=== PATIENT | male | born 1965 | race Caucasian/White ===

== ENCOUNTER → 2016-07-18 | Outpatient (CLI) | payer OTHER ==
[~2016-07-18] MED LIST: ALBU8.5H2 IH; FLUT1AER IH; IBUP-1780 PO; OXYC-471 PO; PANT40TA3 PO; SUCR1TAB36 PO; TRAM50TA2 PO
--- NOTE | 2016-07-18 13:25 | Diagnostic Imaging Report ---
PROCEDURE: CT abdomen and pelvis without contrast. TECHNIQUE: Multiple contiguous axial images were obtained through the abdomen and pelvis without the use of intravenous contrast. INDICATION: Pain. FINDINGS: There is no hydronephrosis and there are no opaque kidney stones. The appendix normal. There is no bowel, biliary or urinary tract obstruction. The unopacified liver and bile ducts normal. The gallbladder contracted. There may be a tiny stone within its fundal aspect. The adrenals and spleen negative. The pancreas negative. The aorta is nonaneurysmal. 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 No abscess, hematoma or other fluid collection. There is no focal inflammatory process. No abdominal wall defect. Lung bases and the osseous structures nonacute. IMPRESSION: No acute-appearing abnormality. Dictated by: Dictated on workstation # [id number]
== END ==
LOC: RAD 12:52
PROVIDERS: ATTEND Nurse Practitioner Family
DX: R10.13 Epigastric pain (principal); R10.84 Generalized abdominal pain
CPT/HCPCS: 74176

== ENCOUNTER → 2016-08-07 | Outpatient (CLI) | payer OTHER ==
--- NOTE | 2016-08-07 13:22 | Diagnostic Imaging Report ---
PROCEDURE: US Gallbladder. TECHNIQUE: Multiple real-time grayscale images were obtained over the right upper quadrant in various projections. INDICATION: Abdominal pain. FINDINGS: The pancreas is largely obscured by bowel gas. The liver demonstrates no focal lesion. Hepatopetal flow in the portal vein is seen. The CBD is obscured by bowel gas. The gallbladder demonstrates no stones or wall thickening. The right kidney is 9.8 cm in length with no hydronephrosis or definite focal lesion visualized. The lower pole is obscured by bowel gas. No fluid collection in the upper right abdomen is seen. IMPRESSION: No definite abnormality. Dictated by: Dictated on workstation # [id number]
== END ==
LOC: RAD 08:56
PROVIDERS: ATTEND Surgery
DX: R10.84 Generalized abdominal pain (principal)
CPT/HCPCS: 76705

== ENCOUNTER 2016-08-20 05:36 | Outpatient (CLI) | payer SELFPAY ==
[~2016-08-20] VITALS: Ht 175.3 cm; Wt 99.8 kg
[~2016-08-20 05:36] MED LIST changes: -FLUT1AER IH; -PANT40TA3 PO; -SUCR1TAB36 PO; -TRAM50TA2 PO
[2016-08-20] MEDS ORDERED: TRAM50TA2 PO (10:37)
[2016-08-20] MEDS ORDERED: PANT40TA3 PO (10:37)
[2016-08-20] MEDS ORDERED: FLUT1AER IH (10:37)
[2016-08-21] MEDS ORDERED: PANT40TA3 PO (10:24)
[2016-08-21] MEDS ORDERED: SUCR1TAB36 PO (10:24)
== END 2016-08-20 10:43 ==
LOC: PREOP 05:36
PROVIDERS: ATTEND Surgery
DX: Z01.818 Encounter for other preprocedural examination (principal); Z12.11 Encounter for screening for malignant neoplasm of colon; R10.13 Epigastric pain

== ENCOUNTER 2016-08-21 08:26 | Day surgery (SDC) | payer OTHER ==
[~2016-08-21] VITALS: Ht 175.3 cm; Wt 99.8 kg
[~2016-08-21 08:26] MED LIST changes: +FLUT1AER IH; +PANT40TA3 PO; +TRAM50TA2 PO
[2016-08-21 08:40] VITALS: BP 132/74
[2016-08-21] MEDS ORDERED: NS IV 1000 ML 1,000 ML ONE (08:42)
[2016-08-21] MEDS ORDERED: NS IV 1000 ML 1,000 ML IV PRN (08:45)
--- NOTE | 2016-08-21 08:56 | Progress Note-Pre Operative ---
Pre-Operative Progress Note H&P Reviewed The H&P was reviewed, patient examined and no changes noted. Date H&P Reviewed: August 21, 2016 Time H&P Reviewed: 08:56 Pre-Operative Diagnosis: epigastric abdominal pain, screening colonoscopy SEBASTIÁN JUAN DO August 21, 2016 08:56
[2016-08-21] MEDS ORDERED: PROPOFOL INJECTION 50 ML IV ONE ×2 (09:33→10:07)
[2016-08-21] MEDS ORDERED: MIDAZOLAM 5 MG/5 ML (VERSED) VIAL ONE (09:33)
[2016-08-21] MEDS ORDERED: HURRICAINE EXT TUBE (BENZOCAINE) ONE (09:37)
[2016-08-21] MEDS ORDERED: SUCCINYLCHOLINE INJ 100 MG/5 ML SYR ONE (09:45)
--- NOTE | 2016-08-21 10:22 | Discharge Inst-Simple/Standard ---
Discharge Inst-Standard Discharge Medications New, Converted or Re-Newed RX: Transmitted to Pharmacy Patient Instructions/Follow Up Plan of Care/Instructions/FU: Follow up in [address] Morton Will need colonoscopy in 1 year. Follow medication as directed. Activity as Tolerated: Yes Discharge Diet: No Restrictions BETZAIDA HATCH APRN August 21, 2016 10:22
[2016-08-21] MEDS ORDERED: SUCR1TAB36 PO (10:24)
[2016-08-21] MEDS ORDERED: PANT40TA3 PO (10:24)
--- NOTE | 2016-08-21 10:24 | Progress Note-Post Operative ---
Post-Operative Progess Note Surgeon (s)/Powerhouse Mechanic Apprentice (s) Surgeon SEBASTIÁN JUAN DO Powerhouse Mechanic Apprentice: na Pre-Operative Diagnosis epigastric abdominal pain, screening colonoscopy Post-Operative Diagnosis gastritis c healing ulcers, small hiatal hernia, colon polyps Post-Op Procedure Note Date of Procedure: August 21, 2016 Name of Procedure Performed: egd c biopsy, colonoscopy c hot biopsy polypectomy x 4 Description of the Procedure: as above Findings of the Procedure as above Anesthesia Type per face cleaner Estimated blood loss (mL): none Specimen(s) collected/removed antrum, colon polyps SEBASTIÁN JUAN DO August 21, 2016 10:24
[2016-08-21 10:30] VITALS: BP 113/71
[2016-08-21] MEDS ORDERED: HURRICAINE EXT TUBE (BENZOCAINE) XX ONE (10:45)
[2016-08-21 10:59] VITALS: BP 118/75
[2016-08-21 11:00] VITALS: BP 118/75
--- NOTE | 2016-08-21 11:19 | OPERATIVE REPORT ---
DATE OF SERVICE: 08/21/2016 PREOPERATIVE DIAGNOSIS: Epigastric abdominal pain. POSTOPERATIVE DIAGNOSES: Gastritis with healing ulcer, small hiatal hernia, colon polyps. PROCEDURES: EGD with biopsy and colonoscopy, hot biopsy and polypectomy x4. SURGEON: Nam Morton DO ANESTHESIA: Per BEAM SAW OPERATOR. ESTIMATED BLOOD LOSS: Minimal. COMPLICATIONS: None. INDICATIONS: The patient is a 50-year-old with epigastric abdominal pain that has been continuing on. He has never had colonoscopy as well. He understands risks and benefits of procedures and wished to proceed with procedures. Consent was in the chart. PROCEDURE IN DETAIL: The patient was taken to the endoscopy suite, placed in the left lateral recumbent position. A timeout was performed. The scope was inserted into the mouth, down the esophagus, into the stomach and into the duodenum without difficulty. There were no polyps, masses, ulcerations within the duodenum. The scope was then slowly retracted back into the stomach. It was further insufflated noting erythematous changes and appearance of healing ulcers. Biopsy was obtained. Scope was then retroflexed noting small hiatal hernia. No other pathology noted and the scope was returned to its normal position. Scope was withdrawn back into the esophagus and slowly retracted till removed noting no further pathology. Colonoscopy then performed. Digital rectal exam was performed. There were no palpable polyps, masses or ulcerations. Scope was inserted in the rectum and passed all the way to the cecum with minimal difficulty. Prep was adequate. There were no polyps, masses or ulcerations within the cecum. There were small polyps in the ascending colon. Hot biopsy and polypectomy was performed. The scope continued to be slowly retracted back into the transverse colon, where was another small polyp was present. Hot biopsy and polypectomy was performed. The scope continued to be retracted back and there were no polyps, masses or ulcerations within the descending colon. Within the sigmoid colon, a small polyp was present, for which hot biopsy and polypectomy was performed. The scope continued to be retracted back into the rectum, where it was also retroflexed. A little larger polyp was present and no other pathology noted. The scope was returned to its normal position. Hot biopsy and polypectomy was performed on the larger polyp. The scope was then slowly retracted until completely removed. The patient tolerated the procedure well without any complications. He was taken to the recovery room in stable condition. RECOMMENDATIONS: The patient had a number of polyps and a larger polyp in the rectum. Would recommend a repeat colonoscopy in 1 year. The patient should be started on Protonix twice a day for 2 weeks and then once a day and then Carafate 1 gram 4 times a day. Will have him follow up in 2-3 weeks to see how his symptoms and pathology results are. If he has any problems prior to that, he should be reevaluated at that time. Job ID: [id number] DocumentID: [id number] Dictated Date: 08/21/2016 10:25:22 Marine Firer Date: 08/21/2016 11:18:04 Dictated By: DO LAINE CASTAÑEDA
== END 2016-08-21 11:00 | disposition home or self-care (01) ==
LOC: ENDO 08:26
PROVIDERS: ATTEND Surgery
DX: Z12.11 Encounter for screening for malignant neoplasm of colon (principal); D12.2 Benign neoplasm of ascending colon; D12.3 Benign neoplasm of transverse colon; D12.5 Benign neoplasm of sigmoid colon; D12.8 Benign neoplasm of rectum; K29.70 Gastritis, unspecified, without bleeding; K25.7 Chronic gastric ulcer without hemorrhage or perforation; K44.9 Diaphragmatic hernia without obstruction or gangrene; J44.9 Chronic obstructive pulmonary disease, unspecified; J45.909 Unspecified asthma, uncomplicated; F17.210 Nicotine dependence, cigarettes, uncomplicated
CPT/HCPCS: 88305